=== PATIENT | female | born 2000 | race Caucasian/White ===

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

== ENCOUNTER 2022-01-02 11:51 | Emergency (ER) | payer OTHER, SELFPAY ==
[2022-01-02 11:53] VITALS: BP 119/78; RESP 14; TEMP 37.1; O2SAT 98
--- NOTE | 2022-01-02 13:15 | ED.GENADULT ---
HPI - General Adult General Chief complaint: Unspecified Stated complaint: heat related problems Time Seen by Provider: 01/02/22 12:24 Source: patient Mode of arrival: ambulatory Limitations: no limitations History of Present Illness HPI narrative: 21-year-old female presents today with complaints of being out in the heat today. Patient states car broke down and had been out In the Heat for over 2 Hours. Patient one-point felt overheated, nauseated, dehydrated, and with a headache. Since arrival patient has been able to hydrate and feels better pain rating currently 4 out of a 10 to the head. Patient does not feel badanymore and would like to be discharged. Related Data Home Medications Medication Instructions Recorded Confirmed bupropion HCl 150 mg tablet,12 hr 150 mg PO DAILY 09/09/19 09/09/19 sustained-release divalproex 250 mg tablet,delayed 250 mg PO Q12H 09/09/19 09/09/19 release Allergies Allergy/AdvReac Type Severity Reaction Status Date / Time No Known Allergies Allergy Verified 01/02/22 12:08 Review of Systems Review of Systems: CONSTITUTIONAL: Denies fever, chills, or sweats. EYES: Denies visual changes, redness, or discharge. ENT: Denies rhinorrhea, congestion, sore throat, or otalgia. CARDIOVASCULAR: Denies chest pain, palpitations, or edema. RESPIRATORY: Denies cough or dyspnea. GASTROINTESTINAL: Denies abdominal pain, nausea, vomiting, or diarrhea. GENITOURINARY: Denies dysuria or hematuria. SKIN: Denies rash or itching. MUSCULOSKELETAL: Denies back pain, joint pain, or myalgia. NEUROLOGIC: Headache 4 out of 10. Denies numbness, dizziness, or weakness. PSYCHIATRIC: Denies anxiety or depression. [facility] Social History Social History Smoking status: Never smoker Exam Narrative: GENERAL: Well-appearing, well-nourished, and in no acute distress. HEAD: Normocephalic, atraumatic. EYES: PERRLA and EOMI. ENT: Nares clear, no rhinorrhea or epistaxis. Mucous membranes moist. Oropharynx without tonsillar hypertrophy exudate or other lesions. Bilateral TMs pearly patel nonbulging NECK: Supple. No adenopathy or masses. No carotid bruits or JVD CHEST: Clear to auscultation. No respiratory distress. No wheezes rales or rhonchi HEART: Regular rate and rhythm. No murmur heard. Normal peripheral pulses. ABDOMEN: Soft, nontender, nondistended, normal active bowel sounds. EXTREMITIES: Normal range of motion. No edema. SKIN: Warm, dry, no rash. NEURO: No focal deficits. Alert and oriented x3. PSYCH: Normal mood and affect. Course Course Emergency Course: Patient has been able to hydrate and has been in cool environment since being brought here. Patient states she feels much better. No nausea but does still with a headache. Does not want anything for the pain just wants to go home. Vital Signs Vital signs: Vital Signs Temperature 37.1 C 01/02/22 11:53 Respiratory Rate 14 01/02/22 11:53 Blood Pressure 119/78 01/02/22 11:53 Pulse Oximetry 98 01/02/22 11:53 Oxygen Delivery Room Air 01/02/22 11:53 Temperature 36.3 C L 01/02/22 13:20 Pulse Rate 88 01/02/22 13:20 Respiratory Rate 16 01/02/22 13:20 Blood Pressure 104/76 01/02/22 13:20 Pulse Oximetry 99 01/02/22 13:20 Oxygen Delivery Room Air 01/02/22 11:53 Medical Decision Making MDM Narrative Medical decision making narrative: 21-year-old female HPI as noted. Upon examination patient is stable without signs of heatstroke or heat exhaustion. Patient has been able to hydrate. Will provide food and discharge. Differential Diagnosis Differential Diagnosis: Dehydration, heat exhaustion, heat stroke Medical Records Medical records reviewed: Yes I reviewed the external patient's medical records. Vital Signs Vital Signs: Vital Signs Temperature 37.1 C 01/02/22 11:53 Respiratory Rate 14 01/02/22 11:53 Blood Pressure 119/78 01/02/22 11:53 P
[2022-01-02 13:20] VITALS: BP 104/76; PULSE 88; RESP 16; TEMP 36.3; O2SAT 99
== END 2022-01-02 13:22 | disposition home or self-care (01) ==
PROVIDERS: Emergency Provider Nurse Practitioner Family
DX: T67.9XXA Effect of heat and light, unspecified, initial encounter (principal); R51.9 Headache, unspecified
CPT/HCPCS: 99281

== ENCOUNTER 2022-01-25 16:35 | Emergency (ER) | payer OTHER, SELFPAY ==
[2022-01-25 16:40] VITALS: BP 99/70; PULSE 84; RESP 16; TEMP 37.1; O2SAT 97
--- NOTE | 2022-01-25 16:46 | ED.SKABFB ---
HPI - Skin/Abscess/Foreign Bdy General Chief complaint: Skin/Abscess/Foreign Body Stated complaint: left hand sting swollen Time Seen by Provider: 01/25/22 16:46 Source: patient and RN notes reviewed History of Present Illness HPI narrative: Patient is a 21-year-old female who presents the urgent care with complaints of left hand redness, swelling due to possible insect bite. Patient states she believes she got bit on her left index finger yesterday while in the pool. Patient states she is taken 1 Rosa but otherwise has not done anything [id number] for her symptoms. Patient denies of any fevers. No other acute complaints. No acute distress noted. Patient aware of the plan of care. Some parts of this dictation were generated by voice recognition software and may contain typographical and/or grammatical inaccuracies. Related Data Allergies Allergy/AdvReac Type Severity Reaction Status Date / Time No Known Allergies Allergy Verified 01/25/22 16:47 Review of Systems Review of Systems: CONSTITUTIONAL: Denies fever, chills, or sweats. EYES: Denies visual changes, redness, or discharge. ENT: Denies rhinorrhea, congestion, sore throat, or otalgia. CARDIOVASCULAR: Denies chest pain, palpitations, or edema. RESPIRATORY: Denies cough or dyspnea. GASTROINTESTINAL: Denies abdominal pain, nausea, vomiting, or diarrhea. GENITOURINARY: Denies dysuria or hematuria. SKIN: Reports of left hand swelling and redness after possible insect bite MUSCULOSKELETAL: Denies back pain, joint pain, or myalgia. NEUROLOGIC: Denies headache, numbness, or weakness. All other systems reviewed are negative, except as documented in HPI. PMFSH Social History Social History Smoking status: Never smoker Comments At the time of my signature, I reviewed and agree with the nursing past medical, surgical, social, and family history. There is no relevant family history pertinent to the patient complaint. Exam Narrative: GENERAL: This is a well-nourished, well-developed patient, in no apparent distress. HEAD: normocephalic, atraumatic. EYES: PERRL. Sclera clear/white. Vision is grossly intact. EARS: External ears normal NOSE: External nose normal with no obvious nasal discharge, nares without redness, no rhinorrhea. THROAT: Mucous membranes moist, posterior pharynx clear. NECK: Neck supple CARDIOVASCULAR: Regular rate and rhythm without murmurs, gallops, or rubs. RESPIRATORY: Clear to auscultation. Breath sounds equal bilaterally. No wheezes, rales, or rhonchi. SKIN: 5 x 7cm area of erythema involving the left index finger extending into the dorsal aspect of the left hand with warm and mild edema-consistent with localized reaction. Warm, intact with no suspicious lesions or rash, good texture and turgor. NEURO: awake, alert, and oriented to person, place and time. There were no obvious focal neurologic abnormalities. EXTREMITIES: Mild edema noted to the dorsal aspect of the left hand involving the index finger. Positive strong left radial pulse with capillary refill less than 2 seconds. Range of motion of the left upper extremity within normal limits. Course Course Level of Care: Express Care Visit Vital Signs Vital signs: Vital Signs Temperature 98.7 F 01/25/22 16:40 Pulse Rate 84 01/25/22 16:40 Respiratory Rate 16 01/25/22 16:40 Blood Pressure 99/70 L 01/25/22 16:40 Pulse Oximetry 97 01/25/22 16:40 Oxygen Delivery Room Air 01/25/22 16:40 Temperature 98.7 F 01/25/22 16:40 Pulse Rate 84 01/25/22 16:40 Respiratory Rate 16 01/25/22 16:40 Blood Pressure 99/70 L 01/25/22 16:40 Pulse Oximetry 97 01/25/22 16:40 Oxygen Delivery Room Air 01/25/22 16:40 Reviewed MDM - Skin/Abscess/Foreign Bdy MDM Narrative Medical decision making narrative: Advised the patient to start and complete the steroid regimen tomorrow. Take the steroid in the morning to avoid keep
[2022-01-25] MEDS: predniSONE 20 MG TABLET 60 MG PO (16:53)
== END 2022-01-25 16:58 | disposition home or self-care (01) ==
PROVIDERS: Emergency Provider Nurse Practitioner Family
DX: S60.562A Insect bite (nonvenomous) of left hand, initial encounter (principal); W57.XXXA Bitten or stung by nonvenomous insect and other nonvenomous arthropods, initial encounter; Y92.34 Swimming pool (public) as the place of occurrence of the external cause
CPT/HCPCS: 99213; G0463; J7512

== ENCOUNTER 2022-03-03 11:50 | Emergency (ER) | payer OTHER, SELFPAY ==
[2022-03-03 11:54] VITALS: BP 103/63; PULSE 66; RESP 16; TEMP 36.9; O2SAT 98
--- NOTE | 2022-03-03 12:03 | ED.GENADULT ---
HPI - General Adult General Chief complaint: Neck Pain/Injury Stated complaint: neck pain Time Seen by Provider: 03/03/22 12:03 Source: patient, RN notes reviewed and old records reviewed Mode of arrival: ambulatory Limitations: no limitations History of Present Illness HPI narrative: 21-year-old female who presents to [facility] care with complaints of neck pain for one week duration after starting new job which is strenuous physically at [employer]. Patient denies any specific injury to her neck. Patient states that pain is in the posterior aspect of her neck with no radiation of pain down spine or into her arms. Patient denies any tingling or numbness to extremities with strong muscle strength to arms bilaterally. Patient reports that she has taken Ibuprofen and used heat to her neck. MD complaint: neck pain Onset (ago): week(s) (1) Location: neck (posterior aspect) Radiation: non-radiation Severity scale (1-10): 6 Treatments prior to arrival: NSAID and heat therapy Related Data Allergies Allergy/AdvReac Type Severity Reaction Status Date / Time No Known Allergies Allergy Verified 03/03/22 12:02 Review of Systems Review of Systems: CONSTITUTIONAL: Denies fever, chills, or sweats. EYES: Denies visual changes, redness, or discharge. ENT: Denies rhinorrhea, congestion, sore throat, or otalgia. CARDIOVASCULAR: Denies chest pain, palpitations, or edema. RESPIRATORY: Denies cough or dyspnea. GASTROINTESTINAL: Denies abdominal pain, nausea, vomiting, or diarrhea. GENITOURINARY: Denies dysuria or hematuria. SKIN: Denies rash or itching. MUSCULOSKELETAL: Positive for posterior neck pain, joint pain, or myalgia. NEUROLOGIC: Denies headache, numbness, or weakness. PSYCHIATRIC: Positive for history of anxiety or depression. All systems reviewed & are unremarkable except as noted in HPI and below PMFSH Past Medical History Medical History (Updated 03/04/22 @ 14:50 by Belgica Craven NP) Anxiety and depression Asthma Surgical History Surgical History (Updated 03/04/22 @ 14:50 by Belgica Craven NP) No history of previous surgery Social History Social History (Updated 03/04/22 @ 14:51 by Belgica Craven NP) Smoking status: Never smoker Alcohol intake: current Alcohol use details: social Substance use type: does not use Gender identity (if verbalized by the patient): Female Comments At time of signature, agree with nursing past medical, surgical, social and family history. There is no relevant family history pertinent to the presenting complaint Exam Narrative: GENERAL: Well-appearing, well-nourished, and in no acute distress. HEAD: Normocephalic, atraumatic. EYES: PERRLA and EOMI. ENT: Nares clear, no rhinorrhea or epistaxis. Mucous membranes moist.TM's normal with good light reflex, throat pink with no tonsil enlargement NECK: Supple. posterior neck pain no radiation to arms or any tingling or numbness, muscle strength strong bilaterally, no nuchal rigidity CHEST: Clear to auscultation. No respiratory distress.SAO2 98% on room air HEART: Regular rate and rhythm. No murmur heard. Normal peripheral pulses. ABDOMEN: Soft, nontender, nondistended, normal active bowel sounds. EXTREMITIES: Normal range of motion. No edema.no pain to extremities or any stated numbness or tingling. SKIN: Warm, dry, no rash. NEURO: No focal deficits. Alert and oriented x3. Course Course Level of Care: Express Care Visit Vital Signs Vital signs: Vital Signs Temperature 36.9 C 03/03/22 11:54 Pulse Rate 66 03/03/22 11:54 Respiratory Rate 16 03/03/22 11:54 Blood Pressure 103/63 03/03/22 11:54 Pulse Oximetry 98 03/03/22 11:54 Oxygen Delivery Room Air 03/03/22 11:54 Temperature 36.9 C 03/03/22 11:54 Pulse Rate 66 03/03/22 11:54 Respiratory Rate 16 03/03/22 11:54 Blood Pressure 103/63 03/03/22 11:54 Pulse Oximetry 98 03/03/22 11:54 Oxygen Delivery Room Air 03/03/22 11:54 M
== END 2022-03-03 12:30 | disposition home or self-care (01) ==
PROVIDERS: Emergency Provider Registered Nurse
DX: T14.8XXA Other injury of unspecified body region, initial encounter (principal); X58.XXXA Exposure to other specified factors, initial encounter; Y99.0 Civilian activity done for income or pay; J45.909 Unspecified asthma, uncomplicated
CPT/HCPCS: 99213; G0463

== ENCOUNTER 2022-05-05 19:00 | Emergency (ER) | payer OTHER, SELFPAY ==
--- NOTE | ~2022-05-05 | XR_ITS ---
EXAMINATION: XR foot LT min 3V DATE: 05/05/2022 19:20 INDICATION: Left foot pain TECHNIQUE: Dorsoplantar, lateral, and 2 oblique views of the left foot were obtained. COMPARISON: None. FINDINGS: Bone alignment is normal. There is no fracture. There is dorsal soft tissue swelling of the foot overlying the distal metatarsals. The joint spaces are normal. IMPRESSION: 1. Soft tissue swelling of the foot without acute osseous abnormality. Reviewed, dictated and finalized at location F.
[2022-05-05 19:08] VITALS: BP 119/65; PULSE 98; RESP 20; TEMP 36.8; O2SAT 100
--- NOTE | 2022-05-05 19:14 | PC.NURSE ---
PT DECLINED WHEELCHAIR TO RADIOLOGY
--- NOTE | 2022-05-05 19:20 | ED.LOWEXIN ---
HPI - Extremity Injury (Lower) General Chief Complaint: Extremity Injury, Lower Stated Complaint: WC/Left Foot Injury Time Seen by Provider: 05/05/22 19:20 Source: patient Mode of arrival: ambulatory Limitations: no limitations History of Present Illness HPI Narrative: 21 y/o female presented for c/o left foot pain, bruising, and swelling after injury. States a cow stepped on her foot yesterday. Endorses mild pain, bruising is to the middle 3 toes, she is able to walk without difficulty. Denies numbness tingling or weakness. Related Data Home Medications Medication Instructions Recorded Confirmed etonogestrel 68 mg subdermal 1 implant subdermal ONCE 05/05/22 05/05/22 implant (Nexplanon) Allergies Allergy/AdvReac Type Severity Reaction Status Date / Time No Known Allergies Allergy Verified 05/05/22 19:22 Review of Systems Review of Systems: CONSTITUTIONAL: Denies body aches, fever, chills CARDIOVASCULAR: Denies chest pain, palpitations, or edema. RESPIRATORY: Denies cough or dyspnea. SKIN: Denies rash, itching, or wounds. MUSCULOSKELETAL: left foot pain NEUROLOGIC: Denies headache, numbness, tingling, or weakness. All systems reviewed & are unremarkable except as noted in HPI and below PMFSH Past Medical History Medical History Anxiety and depression Asthma Surgical History Surgical History No history of previous surgery Social History Social History Smoking status: Never smoker Alcohol intake: current Alcohol use details: social Substance use type: does not use Gender identity (if verbalized by the patient): Female Comments At time of signature, I have reviewed and agree with nursing past medical, surgical, social and family history unless otherwise noted. Please see nursing chart for further information. There is no relevant family history pertinent to the presenting complaint Exam Narrative: GENERAL: Well-appearing CHEST: Speaks in full sentences. No respiratory distress. HEART: Regular rate and rhythm. Normal and equal peripheral pulses. EXTREMITIES: Left foot with mild swelling, moderate bruising over 2nd, 3rd, and 4th MTPs. Subjective pain with flexing toes. Foot has normal strength and sensation, normal range of motion. No point tenderness. No open wounds or obvious deformity; alignment normal, pulse palpable and equal bilaterally, skin warm, dry, pink. Capillary refill less than 3 seconds. SKIN: Warm, dry, no rash. NEURO: Alert and oriented x3. PSYCH: Normal mood and affect Course Course Emergency Course: Patient is aware of diagnosis, understands and agrees to treatment plan. Anticipatory guidance given. Patient agrees to follow-up as directed and is aware of reasons to seek care at the emergency department. Portions of this record may have been created with voice recognition software Level of Care: Express Care Visit Vital Signs Vital signs: Vital Signs Temperature 98.2 F 05/05/22 19:08 Pulse Rate 98 05/05/22 19:08 Respiratory Rate 20 05/05/22 19:08 Blood Pressure 119/65 05/05/22 19:08 Pulse Oximetry 100 05/05/22 19:08 Oxygen Delivery Room Air 05/05/22 19:08 Temperature 98.2 F 05/05/22 19:08 Pulse Rate 98 05/05/22 19:08 Respiratory Rate 20 05/05/22 19:08 Blood Pressure 119/65 05/05/22 19:08 Pulse Oximetry 100 05/05/22 19:08 Oxygen Delivery Room Air 05/05/22 19:08 Reviewed Procedures Orthopedic Splinting/Casting left foot: Lower Extremity Immobilizer: Wilner wrap MDM - Extremity Injury (Lower) MDM Narrative Medical decision making narrative: Reviewed x-ray reviewed with patient. WILNER wrap applied. Advised supportive measures and signs/symptoms to go to the ER. Pt is appropriate for outpt treatment and f/u. Differential Diagnosis D
== END 2022-05-05 19:45 | disposition home or self-care (01) ==
PROVIDERS: Emergency Provider Nurse Practitioner Family
DX: S90.32XA Contusion of left foot, initial encounter (principal); W55.29XA Other contact with cow, initial encounter
CPT/HCPCS: 73630; 99213; G0463

== ENCOUNTER 2024-01-31 19:21 | Emergency (ER) | payer OTHER, SELFPAY ==
--- NOTE | 2024-01-31 20:02 | ED.LOWEXIN ---
HPI - Extremity Injury (Lower) General Chief Complaint: Extremity Injury, Lower Stated Complaint: hips causing pain Time Seen by Provider: 01/31/24 20:00 Source: patient and RN notes reviewed Mode of arrival: ambulatory Limitations: no limitations History of Present Illness HPI Narrative: Patient presents today complaining of swelling in a lymph node to the right hip x2 weeks, worse pain over the last few days. Denies any additional symptoms. Currently rates her pain 2/10 and has been taking ibuprofen with some relief. Related Data Home Medications Medication Instructions Recorded Confirmed etonogestrel 68 mg subdermal 1 implant subdermal ONCE 05/05/22 05/05/22 implant (Nexplanon) albuterol 01/31/24 Allergies Allergy/AdvReac Type Severity Reaction Status Date / Time No Known Allergies Allergy Verified 01/31/24 19:37 Review of Systems Review of Systems: CONSTITUTIONAL: Denies body aches, fever, chills, or sweats. EYES: Denies visual changes, redness, or discharge. ENT: Denies rhinorrhea, congestion, sore throat, or otalgia. CARDIOVASCULAR: Denies chest pain, palpitations, or edema. RESPIRATORY: Denies cough or dyspnea. GASTROINTESTINAL: Denies abdominal pain, nausea, vomiting, or diarrhea. GENITOURINARY: Denies dysuria or hematuria. SKIN: Denies rash, itching, or wounds.+ swollen lymph nodes MUSCULOSKELETAL: Denies back pain, joint pain, or myalgia. NEUROLOGIC: Denies headache, numbness, tingling, or weakness. PSYCH: Denies depression or anxiety. [facility] Past Medical History Medical History Anxiety and depression Asthma Surgical History Surgical History No history of previous surgery Social History Social History Smoking status: Never smoker Alcohol intake: current Alcohol use details: social Substance use type: does not use Gender identity (if verbalized by the patient): Female Comments At time of signature, I have reviewed and agree with nursing past medical, surgical, social and family history unless otherwise noted. Please see nursing chart for further information. There is no relevant family history pertinent to the presenting complaint Exam Narrative: GENERAL: Well-appearing, well-nourished, and in no acute distress. HEAD: Normocephalic, atraumatic. EYES: EOMI. No redness or drainage. Conjunctivae normal. ENT: Mucous membranes pink and moist. NECK: Normal AROM. CHEST: No respiratory distress. EXTREMITIES: Normal range of motion. No edema. Movable, tender, swollen lymph nodes to the right groin. No redness. SKIN: Warm, dry, no rash. Capillary refill normal. Normal skin turgor. NEURO: No focal deficits. Alert and oriented x3. Gait steady. PSYCH: Normal affect. No signs of depression or anxiety. Course Course Level of Care: Express Care Visit MDM - Extremity Injury (Lower) MDM Narrative Medical decision making narrative: Patient has a few swollen lymph nodes to the right groin area. Recommend PCP follow-up if they do not self resolve. Anticipatory guidance given. Differential Diagnosis Differential diagnosis: Likely other (Lymphadenitis, abscess) Critical Care Time Critical Care Time Critical Care Time: No Discharge Plan Discharge Clinical Impression: Lymphadenopathy Patient Disposition: Home, Self-Care Condition: Stable Instructions: Lymphadenopathy (ED) Additional Instructions: You have a few swollen lymph nodes to the right groin. Please make an appointment and follow-up with a PCP if these do not resolve on their own in the next couple of weeks. The physician liaison number for [facility] is [phone] Prescriptions: No Action Nexplanon 68 mg Implant 1 implant SUBDERMAL ONCE Rx Instructions: as a single dose albutero
[2024-01-31 20:08] VITALS: BP 114/72; PULSE 95; RESP 16; TEMP 37.4; O2SAT 100
== END 2024-01-31 20:16 | disposition home or self-care (01) ==
PROVIDERS: Emergency Provider Nurse Practitioner
DX: R59.0 Localized enlarged lymph nodes (principal); J45.909 Unspecified asthma, uncomplicated
CPT/HCPCS: 99211; G0463

== ENCOUNTER 2025-04-10 19:36 | Emergency (ER) | payer OTHER, SELFPAY ==
[2025-04-10 19:40] VITALS: BP 117/73; PULSE 80; RESP 14; TEMP 36.9; O2SAT 100
--- NOTE | 2025-04-10 19:45 | ED.LOWEXIN ---
HPI - Extremity Injury (Lower) General Chief Complaint: Extremity Problem,Nontraumatic Stated Complaint: swollen left mckinney Time Seen by Provider: 04/10/25 19:44 Source: patient and RN notes reviewed Mode of arrival: ambulatory Limitations: no limitations History of Present Illness HPI Narrative: 24-year-old female presents with concern for swelling to the left lower leg. She reports she noticed it prior to arrival after work. She works outside with animals. She denies fever, body aches, chills, sweats. Denies injury. Related Data Home Medications ?Medication ?Instructions ?Recorded ?Confirmed ?Last Taken ?Type etonogestrel 68 mg subdermal 1 implant subdermal ONCE 05/05/22 05/05/22 Unknown History implant (Nexplanon) albuterol 01/31/24 Unknown History Allergies Allergy/AdvReac Type Severity Reaction Status Date / Time No Known Allergies Allergy Verified 04/10/25 19:47 Review of Systems Review of Systems: CONSTITUTIONAL: Denies malaise, chills, sweats, or fever. EYES: Denies redness, or discharge. ENT: Denies rhinorrhea, congestion, swollen lips, swollen tongue CARDIOVASCULAR: Denies chest pain, palpitations, or edema. RESPIRATORY: Denies cough or dyspnea. GASTROINTESTINAL: Denies abdominal pain, nausea, vomiting SKIN: Reports swelling to the left lower leg MUSCULOSKELETAL: Denies joint pain or myalgia. NEUROLOGIC: Denies headache. All systems reviewed & are unremarkable except as noted in HPI and below PMFSH Past Medical History Medical History Anxiety and depression Asthma Surgical History Surgical History No history of previous surgery Social History Social History Smoking status: Never smoker Alcohol intake: current Alcohol use details: social Substance use type: does not use Gender identity (if verbalized by the patient): Female Comments At time of signature, agree with nursing past medical, surgical, social and family history. There is no relevant family history pertinent to the presenting complaint Exam Narrative: GENERAL: Well-appearing, well-nourished, and in no acute distress. HEAD: Normocephalic, atraumatic. EYES: PERRLA, conjunctivae clear, and EOMI. ENT: Mucous membranes moist. Oropharynx without edema, erythema or lesions. NECK: Supple. No lymphadenopathy CHEST: Clear to auscultation. No respiratory distress. HEART: Regular rate and rhythm. SKIN: Warm, dry. Approximately a 20 cm diameter slightly raised area to the anterior left lower leg without induration, slightly warm and slightly erythematous. NEURO: Alert and oriented x3. PSYCH: Normal mood and affect Course Course Emergency Course: Patient is aware of diagnosis, understands and agrees to treatment plan. Anticipatory guidance given. Patient agrees to follow-up as directed and is aware of reasons to seek care at the emergency department. Portions of this record may have been created with voice recognition software Level of Care: Express Care Visit Vital Signs Vital signs: Vital Signs Temperature 98.4 F 04/10/25 19:40 Pulse Rate 80 04/10/25 19:40 Respiratory Rate 14 04/10/25 19:40 Blood Pressure 117/73 04/10/25 19:40 Pulse Oximetry 100 04/10/25 19:40 Oxygen Delivery Room Air 04/10/25 19:40 Temperature 98.4 F 04/10/25 19:40 Pulse Rate 80 04/10/25 19:40 Respiratory Rate 14 04/10/25 19:40 Blood Pressure 117/73 04/10/25 19:40 Pulse Oximetry 100 04/10/25 19:40 Oxygen Delivery Room Air 04/10/25 19:40 Reviewed. MDM - Extremity Injury (Lower) MDM Narrative Medical decision making narrative: Does not appear at this time to be erythema multiforme, bullous, SJS, TEN; no evidence at this time to suggest RMSF, endocarditis or Lyme disease; patient looks well, nontoxic and is tolerating oral intake; no neurologic signs or symptoms; no headache, photophobia or neck pain; afebrile; appropriate for initial outpatient treatment; discussed the importance of follow-up, patient agrees; question, viral exanthema, contact dermatitis, allergic dermatitis, eczema, urticaria, cellulitis, insect bite. No soft palate or uvula edema, no tongue, lip edema or other mucosal involvement, no respiratory compromise, no stridor, no wheezing, no wheezing, no history of syncope, no hypotension, no nausea, vomiting, or diarrhea. Instructed patient to go to nearest ER immediately for any worsening symptoms including but not limited to: fever, spreading rash, pain, sore throat, headache, dizziness, chest pain, trouble breathing, or any symptoms concerning to the patient. Critical Care Time Critical Care Time Critical Care Time: No Discharge Plan Discharge Clinical Impression: Insect bite Patient Disposition: Home Condition: Stable Instructions: Insect Bite or Sting (ED), Cold Compress or Soak (ED) Additional Instructions: Apply ice to the sting site and swollen area for pain and itch relief. Apply ice for 20 minutes once every hour as needed. Wrap the ice in a towel or keep a cloth between the ice and skin to keep from freezing the skin. Taking an antihistamine such as diphenhydramine (Benadryl) every 6 hours or a nonsedating one such as Zyrtec daily will help with itching and swelling. Take acetaminophen (Tylenol) or ibuprofen (Motrin) for pain relief as needed. Wash the sting site with soap and water. Apply hydrocortisone cream to the sting site and surrounding skin can help relieve redness and itching. Please follow-up with your primary care doctor if your symptoms do not improve. If you have any worsening of symptoms or any other urgent concerns please go to the ER. Please take medications as prescribed and continue taking your home medications as usual. Patient Language: Hebrew Prescriptions: New triamcinolone acetonide 0.1 % cream 1 applic TOPICAL BID 7 Days Qty: 80 0RF No Action Nexplanon 68 mg Implant 1 implant SUBDERMAL ONCE Rx Instructions: as a single dose albuterol Follow-up/Referrals: UNKNOWN,DOCTOR [Primary Care Provider] Time of Disposition: 19:54
== END 2025-04-10 19:57 | disposition home or self-care (01) ==
PROVIDERS: Emergency Provider Nurse Practitioner
DX: S80.862A Insect bite (nonvenomous), left lower leg, initial encounter (principal); W57.XXXA Bitten or stung by nonvenomous insect and other nonvenomous arthropods, initial encounter; J45.909 Unspecified asthma, uncomplicated
CPT/HCPCS: 99213; G0463

== ENCOUNTER 2025-04-17 15:41 | Emergency (ER) | payer OTHER, SELFPAY ==
--- NOTE | ~2025-04-17 | XR_ITS ---
EXAMINATION: XR knee RT min 4V, 04/17/2025 15:57 CDT HISTORY: lateral anterior knee pain- kicked by cow COMPARISON: No comparisons available. Findings: No acute fracture or malalignment. No significant degenerative changes. Soft tissues unremarkable. Impression: No acute fracture or malalignment. Reviewed, dictated and finalized at location P. Impression: No acute fracture or malalignment.
[2025-04-17 15:51] VITALS: BP 120/78; PULSE 77; RESP 16; TEMP 36.5; O2SAT 100
--- NOTE | 2025-04-17 16:02 | ED.LOWEXIN ---
HPI - Extremity Injury (Lower) General Chief Complaint: Extremity Injury, Lower Stated Complaint: right knee injury Time Seen by Provider: 04/17/25 15:55 Source: patient Mode of arrival: ambulatory Limitations: no limitations History of Present Illness HPI Narrative: Luz Elena is a 24-year-old female patient presenting to the clinic today with complaints of right knee pain and swelling x2 days. She reports she was kicked by a cow on Sunday when trying to move the cow from the milking area back to its barn. She reports it was raining in the count did not warm to go outside and she made a loud noise to get the cow to move and the cow kicked her knee. States when she is standing her right knee swells. Does have some pain with ambulation/bearing weight. She has been icing the knee and taking ibuprofen for pain. Related Data Home Medications ?Medication ?Instructions ?Recorded ?Confirmed ?Last Taken ?Type etonogestrel 68 mg subdermal 1 implant subdermal ONCE 05/05/22 05/05/22 Unknown History implant (Nexplanon) albuterol 01/31/24 Unknown History Allergies Allergy/AdvReac Type Severity Reaction Status Date / Time No Known Allergies Allergy Verified 04/17/25 15:51 Review of Systems Review of Systems: Pertinent positives per HPI. Patient denies any fever, chills, rash, headache, visual changes, dizziness, cough, runny nose, sore throat, shortness of breath, chest pain, palpitations, nausea, vomiting, diarrhea, constipation, abdominal pain, or any urinary issues. FOR[facility], [facility] Past Medical History Medical History Anxiety and depression Asthma Surgical History Surgical History No history of previous surgery Social History Social History Smoking status: Never smoker Alcohol intake: current Alcohol use details: social Substance use type: does not use Gender identity (if verbalized by the patient): Female Comments At the time of my signature, I reviewed and agree with the nursing past medical, surgical, social, and family history. There is no relevant family history pertinent to the patient complaint. Course Course Emergency Course: Portions of this record may have been created with voice recognition software. Level of Care: Express Care Visit Vital Signs Vital signs: Vital Signs Temperature 36.5 C 04/17/25 15:51 Pulse Rate 77 04/17/25 15:51 Respiratory Rate 16 04/17/25 15:51 Blood Pressure 120/78 04/17/25 15:51 Pulse Oximetry 100 04/17/25 15:51 Oxygen Delivery Room Air 04/17/25 15:51 Temperature 36.5 C 04/17/25 15:51 Pulse Rate 77 04/17/25 15:51 Respiratory Rate 16 04/17/25 15:51 Blood Pressure 120/78 04/17/25 15:51 Pulse Oximetry 100 04/17/25 15:51 Oxygen Delivery Room Air 04/17/25 15:51 Vital signs reviewed MDM - Extremity Injury (Lower) MDM Narrative Medical decision making narrative: At the time of visit patient is resting comfortably on the exam table. Patient appears to be nontoxic. Complaints of right knee pain and swelling x2 days. She reports she was kicked by a cow on Sunday when trying to move the cow from the milking area back to its barn. She reports it was raining in the count did not warm to go outside and she made a loud noise to get the cow to move and the cow kicked her knee. Does have pain with ambulation and when she is standing for a period of time her knee starts to swell. She has been icing the knee and taking ibuprofen for pain. On exam patient has bruising and swelling over the right lateral anterior knee. Pain with bearing weight, no pain with flexion and extension of the knee, X-ray of right knee was ordered. Diagnostics: X-ray of the right knee is negative for any sign of fracture or malalignment. No sign of knee joint effusion. Plan: I suspect patient has right knee contusion with localized swelling. Wilner wrap and ice pack was given to the patient. Sensation, circulation, and motion within normal limits after application of the Wilner wrap. Work note was given. Supportive measures were discussed with the patient and they voiced understanding discharge instructions and agrees to treatment plan. Return precautions reviewed Differential Diagnosis Differential diagnosis: Likely acute internal derangement of knee and other (Knee strain, knee sprain, contusion, knee effusion, soft tissue injury) Imaging Data Radiologist's impression: ITS Impressions Knee X-Ray 04/17/25 16:04 Impression: No acute fracture or malalignment. Discharge Plan Discharge Clinical Impression: Soft tissue swelling of knee joint Contusion of knee, right Qualifiers: Encounter type: initial encounter Qualified Code(s): S80.01XA - Contusion of right knee, initial encounter Patient Disposition: Home Condition: Stable Instructions: Antibiotic Form, Contusion in Adults (ED), Knee Pain (ED) Additional Instructions: X-rays negative for any sign of fracture or malalignment. No sign of effusion. Rest, ice, elevate, and wear wilner wrap as directed Tylenol/motrin for pain as discussed. Gradually bear weight No running or sports until healed. Follow up with your PCP if symptoms persist more than 1 week. Patient Language: Vietnamese Prescriptions: No Action Nexplanon 68 mg Implant 1 implant SUBDERMAL ONCE Rx Instructions: as a single dose albuterol triamcinolone acetonide 0.1 % cream 1 applic TOPICAL BID 7 Days Qty: 80 0RF Follow-up/Referrals: PHYSICIAN,WOOD REPATCHER [Primary Care Provider, Internal Medicine] Stand Alone Forms: Work/School Release IP Time of Disposition: 16:14 Quality NIHSS Nursing Documentation ED NIHSS nursing documentation: reviewed/agree
== END 2025-04-17 16:21 | disposition home or self-care (01) ==
PROVIDERS: Emergency Provider Nurse Practitioner Family
DX: S80.01XA Contusion of right knee, initial encounter (principal); W55.22XA Struck by cow, initial encounter
CPT/HCPCS: 73564; 99213; G0463